=== PATIENT | female | born 1970 | race Caucasian/White ===

== ENCOUNTER 2017-09-12 09:23 | Emergency (ER) | payer OTHER ==
[~2017-09-12] VITALS: Ht 154.9 cm; Wt 90.3 kg
[~2017-09-12 09:23] MED LIST: ATIVAN2 MG PO; ATORVASTATIN CA10 MG PO; CYMBALTA60 MG PO; EPIPEN ADU0.3 MG/0.3; GLUCOPHAGE XR,500 MG PO; GLUCOPHAGE500 MG PO; HYDROCHLOROTHIA25 MG PO; IRON55 MG PO; KLOR-CON20 MEQ PO; LISINOPRIL-HCT1 EACH PO; LORAZEPAM0.5 MG PO; LOSARTAN-HCTZ1 EACH PO; MEGESTROL ACETA40 MG PO; PLAVIX75 MG PO; PREDNISONE20 MG PO; PROAIR HFA8.5 GM IH; RITALIN20 MG PO; TOPAMAX25 MG PO; TOPIRAMATE50 MG PO; TRAZODONE HCL100 MG PO; VENTOLIN HFA18 GM IH; VITAMIN B CO1 TABLET PO; VITAMIN B-6100 MG PO
[2017-09-12] MEDS ORDERED: PREDNISONE20 MG PO (13:45)
[2017-09-12] MEDS ORDERED: ZITHROMAX250 MG PO (13:45)
[2017-09-12] MEDS ORDERED: VENTOLIN HFA18 GM IH (13:45)
[2017-09-12] MEDS ORDERED: TESSALON PERLE100 MG PO (13:45)
[2017-09-12 14:03] VITALS: BP 132/89
== END 2017-09-12 14:06 | disposition home or self-care (01) ==
LOC: EME 09:23
PROVIDERS: Nurse Practitioner Family
DX: J20.9 Acute bronchitis, unspecified (principal); J32.9 Chronic sinusitis, unspecified; R59.0 Localized enlarged lymph nodes; E11.9 Type 2 diabetes mellitus without complications; I10 Essential (primary) hypertension; K21.9 Gastro-esophageal reflux disease without esophagitis; J45.909 Unspecified asthma, uncomplicated; I25.2 Old myocardial infarction; F41.9 Anxiety disorder, unspecified; F32.9 Major depressive disorder, single episode, unspecified; Z79.02 Long term (current) use of antithrombotics/antiplatelets; Z79.51 Long term (current) use of inhaled steroids; Z79.84 Long term (current) use of oral hypoglycemic drugs; Z87.01 Personal history of pneumonia (recurrent); Z87.442 Personal history of urinary calculi; Z90.49 Acquired absence of other specified parts of digestive tract; Z90.710 Acquired absence of both cervix and uterus; Z88.6 Allergy status to analgesic agent; Z88.2 Allergy status to sulfonamides; Z91.013 Allergy to seafood; Z91.041 Radiographic dye allergy status; Z88.8 Allergy status to other drugs, medicaments and biological substances
CPT/HCPCS: 71046; 87502; 94640; 99281; 99284; J7512

== ENCOUNTER 2017-10-05 16:35 | Emergency (ER) | payer OTHER ==
[~2017-10-05] VITALS: Ht 154.9 cm; Wt 88.2 kg
[~2017-10-05 16:35] MED LIST changes: +TESSALON PERLE100 MG PO; +ZITHROMAX250 MG PO
[2017-10-05 17:16] LABS: HEMATOCRIT 42.2 % (36.0-46.0); HEMOGLOBIN 13.8 G/DL (11.9-15.5); MCH 28.6 PG (29.0-34.0); MCHC 32.7 G/DL (30.0-36.0); MCV 87.6 FL (83-99); PLATELET COUNT 271 K/uL (156-360); RBC DIS.WIDTH-CV 13.3 % (11.8-14.6); RBC DIS.WIDTH-SD 42.7 % (39-53); RED BLOOD COUNT 4.82 M/uL (3.80-5.20); WHITE BLOOD COUNT 10.4 K/uL (4.1-10.2)
[2017-10-05 17:31] LABS: ALBUMIN 3.9 g/dL (3.2-4.8); CHLORIDE 102 mEq/L (99-109); POTASSIUM 3.9 mEq/L (3.7-5.4); SODIUM 138 mEq/L (136-147)
[2017-10-05 17:33] LABS: GLUCOSE 120 mg/dL (70-99)
[2017-10-05 17:34] LABS: TOTAL PROTEIN 7.2 g/dL (6.4-8.3)
[2017-10-05 17:35] LABS: TOTAL BILIRUBIN 0.8 mg/dL (0.0-1.0)
[2017-10-05 17:37] LABS: ALKALINE PHOSPHATASE 86 IU/L (3-129); CREATININE 0.8 mg/dL (0.6-1.3); GFR ESTIMATE (CALCULATED) > 59 mL/min/
[2017-10-05 17:38] LABS: UREA NITROGEN (BUN) 9 mg/dL (9-23)
[2017-10-05 17:39] LABS: AST (GOT) 15 IU/L (2-34)
[2017-10-05 17:40] LABS: ALT (GPT) 17 IU/L (3-49); LIPASE 12 U/L (1.0-51.0)
[2017-10-05] MEDS ORDERED: WOMEN'S DAILY1 EACH PO (17:46)
[2017-10-05] MEDS ORDERED: PRILOSEC20 MG PO (17:47)
[2017-10-05] MEDS ORDERED: ZOFRAN4 MG PO (17:47)
[2017-10-05 17:48] LABS: QUANTITATIVE HCG < 4.0 MIU/ML
[2017-10-05 18:24] LABS: APPEARANCE TURBID ((CLEAR)); BILIRUBIN NEGATIVE; BLOOD SMALL; COLOR AMBER ((YELLOW)); GLUCOSE (STRIP) NEGATIVE; KETONES NEGATIVE; LEUKOCYTES NEGATIVE; NITRITE NEGATIVE; PROTEIN (STRIP) 30; SPECIFIC GRAVITY 1.027 (1.000-1.030); UROBILINOGEN 0.2 MG/DL (0.2-1.0)
[2017-10-05 18:58] LABS: AMORPHOUS URATES CRYSTALS 3+; BACTERIA NONE SEEN /HPF; EPITHELIAL CELLS RARE /HPF; MUCUS NONE SEEN /LPF; RED BLOOD CELLS NONE SEEN /HPF (0-5); UCUL ADDED? NO; WHITE BLOOD CELLS NONE SEEN /HPF (0-5)
[2017-10-06 00:17] LABS: SOURCE SWAB
[2017-10-06] MEDS ORDERED: PREDNISONE10 M1 PO (00:44)
[2017-10-06 00:51] VITALS: BP 147/89
[2017-10-06 05:04] LABS: CANDIDA DNA PROBE NEGATIVE; GARDNERELLA DNA PROBE NEGATIVE; TRICHOMONAS DNA PROBE NEGATIVE
== END 2017-10-06 00:56 | disposition home or self-care (01) ==
LOC: EME 16:35
PROVIDERS: Emergency Medicine
DX: R10.10 Upper abdominal pain, unspecified (principal); I10 Essential (primary) hypertension; E11.9 Type 2 diabetes mellitus without complications; Z79.84 Long term (current) use of oral hypoglycemic drugs; J45.909 Unspecified asthma, uncomplicated; K21.9 Gastro-esophageal reflux disease without esophagitis; G43.909 Migraine, unspecified, not intractable, without status migrainosus; I25.2 Old myocardial infarction; F41.9 Anxiety disorder, unspecified; F32.9 Major depressive disorder, single episode, unspecified; Z79.02 Long term (current) use of antithrombotics/antiplatelets; Z87.442 Personal history of urinary calculi; Z90.49 Acquired absence of other specified parts of digestive tract; Z88.2 Allergy status to sulfonamides; Z88.1 Allergy status to other antibiotic agents; Z88.6 Allergy status to analgesic agent; Z91.013 Allergy to seafood; Z91.041 Radiographic dye allergy status
CPT/HCPCS: 74176; 80053; 81003; 83605; 83690; 84702; 85027; 85651; 86140; 87210; 87480; 87491; 87510; 87591; 87660; 99281; 99285; J7120

== ENCOUNTER 2018-02-08 13:00 | Emergency (ER) | payer OTHER ==
[~2018-02-08] VITALS: Ht 154.9 cm; Wt 88.9 kg
[~2018-02-08 13:00] MED LIST changes: +PREDNISONE10 M1 PO; +PRILOSEC20 MG PO; +WOMEN'S DAILY1 EACH PO; +ZOFRAN4 MG PO
[2018-02-08 13:44] LABS: HEMOGLOBIN 12.8 G/DL (11.9-15.5); MCH 28.6 PG (29.0-34.0); MCHC 32.8 G/DL (30.0-36.0); MCV 87.1 FL (83-99); PLATELET COUNT 328 K/uL (156-360); RED BLOOD COUNT 4.48 M/uL (3.80-5.20); WHITE BLOOD COUNT 10.8 K/uL (4.1-10.2)
[2018-02-08 13:54] LABS: CHLORIDE 105 mEq/L (99-109); POTASSIUM 3.3 mEq/L (3.7-5.4); SODIUM 141 mEq/L (136-147)
[2018-02-08 13:56] LABS: GLUCOSE 100 mg/dL (70-99)
[2018-02-08 13:57] LABS: TOTAL PROTEIN 7.1 g/dL (6.4-8.3)
[2018-02-08 13:58] LABS: TOTAL BILIRUBIN 0.6 mg/dL (0.0-1.0)
[2018-02-08 14:00] LABS: ALKALINE PHOSPHATASE 85 IU/L (3-129); CREATININE 0.8 mg/dL (0.6-1.3); GFR ESTIMATE (CALCULATED) > 59 mL/min/
[2018-02-08 14:01] LABS: UREA NITROGEN (BUN) 7 mg/dL (9-23)
[2018-02-08 14:02] LABS: AST (GOT) 14 IU/L (2-34)
[2018-02-08 14:03] LABS: ALT (GPT) 13 IU/L (3-49)
[2018-02-08 14:09] LABS: QUANTITATIVE HCG < 4.0 MIU/ML
[2018-02-08 14:54] LABS: LIPASE 19 U/L (1.0-51.0)
[2018-02-08 16:02] LABS: APPEARANCE CLOUDY ((CLEAR)); BILIRUBIN NEGATIVE; BLOOD SMALL; COLOR YELLOW ((YELLOW)); GLUCOSE (STRIP) NEGATIVE; KETONES NEGATIVE; LEUKOCYTES SMALL; NITRITE NEGATIVE; PROTEIN (STRIP) 30; UROBILINOGEN 0.2 MG/DL (0.2-1.0)
[2018-02-08 17:15] LABS: BACTERIA 2+ /HPF; EPITHELIAL CELLS 1+ /HPF; MUCUS NONE SEEN /LPF; RED BLOOD CELLS RARE /HPF (0-5); UCUL ADDED? YES; WHITE BLOOD CELLS RARE /HPF (0-5)
[2018-02-08 17:44] VITALS: BP 153/84
== END 2018-02-08 17:50 | disposition home or self-care (01) ==
LOC: EME 13:00
DX: R19.5 Other fecal abnormalities (principal); R11.0 Nausea; E87.6 Hypokalemia; I10 Essential (primary) hypertension; E11.9 Type 2 diabetes mellitus without complications; K21.9 Gastro-esophageal reflux disease without esophagitis; I25.2 Old myocardial infarction; J45.909 Unspecified asthma, uncomplicated; F32.9 Major depressive disorder, single episode, unspecified; F41.9 Anxiety disorder, unspecified; Z79.02 Long term (current) use of antithrombotics/antiplatelets; Z86.79 Personal history of other diseases of the circulatory system; Z87.442 Personal history of urinary calculi; Z98.890 Other specified postprocedural states; Z90.49 Acquired absence of other specified parts of digestive tract; Z88.6 Allergy status to analgesic agent; Z88.1 Allergy status to other antibiotic agents; Z91.013 Allergy to seafood; Z88.2 Allergy status to sulfonamides; Z91.041 Radiographic dye allergy status; Z88.8 Allergy status to other drugs, medicaments and biological substances
CPT/HCPCS: 80053; 81003; 83690; 84702; 85027; 87086; 99281; 99285; J0780; J1200; J1885; J7030